=== PATIENT | female | born 1990 | race Caucasian/White ===

== ENCOUNTER 2019-02-13 14:23 | Emergency (ER) | payer BC ==
--- NOTE | 2019-02-13 14:17 | ER Report ---
History and Physical Time Seen By MD: 14:17 (NGOC BARCENAS MD) HPI/ROS CHIEF COMPLAINT: Flank and abdominal pain. HISTORY OF PRESENT ILLNESS: Patient is a 28-year-old female who presents to the emergency department for evaluation of suspected right-sided kidney stone. Patient was seen and evaluated at [facility] urgent care where she had ultrasound showed right-sided hydronephrosis. Apparently blood work was done at that time which we will look in the computer for results. Patient states symptoms began on Wednesday. The pain is localized to the right flank without radiation. She reports nausea without any vomiting no fevers or chills. Patient does have prior history of left-sided kidney stone. REVIEW OF SYSTEMS: Constitutional: No fever, no chills. Eyes: No discharge. ENT: No sore throat. Cardiovascular: No chest pain, no palpitations. Respiratory: No cough, no shortness of breath. Gastrointestinal: Right-sided flank pain Genitourinary: No hematuria. Musculoskeletal: No back pain. Skin: No rashes. Neurological: No headache. (NGOC BARCENAS MD) Allergies: Coded Allergies: NSAIDS (Non-Steroidal Anti-Inflamma (Verified Allergy, Intermediate, RASH, 02/13/19) amoxicillin (Verified Allergy, Intermediate, RASH, 02/13/19) ampicillin (Verified Allergy, Intermediate, RASH, 02/13/19) latex (Verified Allergy, Unknown, 02/13/19) Sulfa (Sulfonamide Antibiotics) (Verified Adverse Reaction, Intermediate, DIARRHEA, 02/13/19) Home Meds Active Scripts Ondansetron Hcl (ZOFRAN) 4 Mg Tablet, 4 MG PO Q8H for Nausea, #15 TAB 0 Refills Prov:NGOC BARCENAS MD 02/13/19 Oxycodone Hcl/Acetaminophen (PERCOCET 5-325 MG TABLET) 1 Each Tablet, 1 EACH PO Q4H for PAIN, #20 TAB 0 Refills Prov:NGOC BARCENAS MD 02/13/19 Past Medical/Surgical History History of prior kidney stone to the left kidney (NGOC BARCENAS MD) Constitutional Vital Sign - Last 24 Hours 02/13/19 02/13/19 02/13/19 02/13/19 14:25 14:30 14:45 15:15 Temp 98.3 Pulse 110 100 97 102 Resp 16 B/P (MAP) 157/109 154/112 (126) Pulse Ox 94 92 91 91 O2 Delivery Room Air 02/13/19 02/13/19 02/13/19 15:30 15:45 16:00 Pulse 98 98 B/P (MAP) 126/90 (102) 124/85 (98) Pulse Ox 89 92 (LAURORA,TRACIE V DO) Physical Exam General Appearance: The patient is alert, has no immediate need for airway protection and no current signs of toxicity. Eyes: Pupils equal and round no injection. Respiratory: Chest is non tender, lungs are clear to auscultation. Cardiac: regular rate and rhythm Gastrointestinal: Abdomen is soft and non tender, no masses, bowel sounds normal. Musculoskeletal: Neck: Neck is supple and non tender. Extremities have full range of motion and are non tender. Skin: No rashes or lesions. (NGOC BARCENAS MD) Medical Decision Making Data Points Laboratory Hematology Test 02/13/19 15:02 Urine Color Yellow Urine Clarity Cloudy Urine pH 5.0 pH (4.8-9.5) Urine Specific [place] 1.027 Urine Protein 30 mg/dL (NEGATIVE) Urine Glucose (UA) Negative mg/dL (NEGATIVE) Urine Ketones 80 mg/dL (NEGATIVE) Urine Blood Moderate (NEGATIVE) Urine Nitrite Negative (NEGATIVE) Urine Bilirubin Negative (NEGATIVE) Urine Urobilinogen 2.0 mg/dL (0.2-1.9) Urine Leukocyte Esterase Small (NEGATIVE) Urine RBC 143 /HPF (0-2/HPF) Urine WBC 15 /HPF (0-5/HPF) Urine Squamous Epithelial Cells Many /LPF (</=FEW) Urine Calcium Oxalate Crystals Few /HPF (NONE) Urine Bacteria Few /HPF (NONE-FEW) Urine Mucus Few /HPF (NONE-FEW) Urine HCG, Qualitative Negative (NEGATIVE) Chemistry Test 02/13/19 15:02 Urine Color Yellow Urine Clarity Cloudy Urine pH 5.0 pH (4.8-9.5) Urine Specific [place] 1.027 Urine Protein 30 mg/dL (NEGATIVE) Urine Glucose (UA) Negative mg/dL (NEGATIVE) Urine Ketones 80 mg/dL (NEGATIVE) Urine Blood Moderate (NEGATIVE) Urine Nitrite Negative (NEGATIVE) Urine Bilirubin Negative (NEGATIVE) Urine Urobilinogen 2.0 mg/dL (0.2-1.9) Urine Leukocyte Esterase Small (NEGATIVE) Urine RBC 143 /HPF (0-2/HPF) Urine WBC 15 /HPF (0-5/HPF) Urine Squamous Epithelial Cells Many /LPF (</=FEW) Urine Calcium Oxalate Crystals Few /HPF (NONE) Urine Bacteria Few /HPF (NONE-FEW) Urine Mucus Few /HPF (NONE-FEW) Urine HCG, Qualitative Negative (NEGATIVE) Urinalysis Test 02/13/19 15:02 Urine Color Yellow Urine Clarity Cloudy Urine pH 5.0 pH (4.8-9.5) Urine Specific [place] 1.027 Urine Protein 30 mg/dL (NEGATIVE) Urine Glucose (UA) Negative mg/dL (NEGATIVE) Urine Ketones 80 mg/dL (NEGATIVE) Urine Blood Moderate (NEGATIVE) Urine Nitrite Negative (NEGATIVE) Urine Bilirubin Negative (NEGATIVE) Urine Urobilinogen 2.0 mg/dL (0.2-1.9) Urine Leukocyte Esterase Small (NEGATIVE) Urine RBC 143 /HPF (0-2/HPF) Urine WBC 15 /HPF (0-5/HPF) Urine Squamous Epithelial Cells Many /LPF (</=FEW) Urine Calcium Oxalate Crystals Few /HPF (NONE) Urine Bacteria Few /HPF (NONE-FEW) Urine Mucus Few /HPF (NONE-FEW) Urine HCG, Qualitative Negative (NEGATIVE) (TRACIE DELA CRUZ DO) EKG/Imaging Imaging FACILITY: [facility] [place] PATIENT NAME: Varsha Larsen : 1990 MR: [id number] V: [id number] EXAM DATE: ORDERING PHYSICIAN: STEVEN RUIZ TECHNOLOGIST: Location: [facility] - [place], [place] Patient: Varsha Larsen : 1990 Visit/Account:[id number] Date of Sevice: 02/13/2019 ABDOMEN COMPLETE ADDITIONAL PERTINENT HISTORY: Right flank pain with positive Brandon's sign. COMPARISON STUDIES: None FINDINGS: Gallbladder:Negative. Liver: Negative. Common duct: Negative. Pancreas: Negative. Spleen:Negative. Kidneys: Findings concerning for moderate right-sided hydronephrosis. Right kidney measures 12.5 cm in length. The left kidney measures 10.3 cm in length Upper abdominal aorta and IVC: Negative. Ascites: none. IMPRESSION: 1. Moderate right-sided hydronephrosis. CT scan may be of benefit to further evaluate for underlying renal or ureteral calculi as a cause for this hydronephrosis. 2. Remaining portions of the exam are unremarkable. Report Dictated By: Simón Dixon MD at 02/13/2019 1:33 PM Report E-Signed By: Simón Dixon MD at 02/13/2019 1:36 PM WSN:[facility] (NGOC BARCENAS MD) Imaging see report (TRACIE DELA CRUZ DO) ED Course/Re-evaluation ED Course The patient was seen prior to stitches with workup that is highly suggestive of right sided ureterolithiasis. Blood work was unremarkable. A CT scan was ordered we will order urine test prior to scan and give IV Toradol for pain along with Zofran for nausea. 02/13/2019 3:03:05 pm bloodwork from earlier today was reviewed and normal white count normal CBC normal electrolytes with normal GFR. (NGOC BARCENAS MD) ED Course 02/13/2019 4:13:50 pm Signed out pending CT. Reviewed pts CT findings. Pts states the left lung finding is chronic. PT does have hx of kidney stones and ovarian cysts. She has always passed her previous stones. kobi give pt a name or urologist since this stone is larger and may not pass. Also discussed using stool softener due to constipation and use of pain medications. PT is more comfortable and would like to go Decision to Disposition Date: Feb 13, 2019 Decision to Disposition Time: 16:15 (TRACIE DELA CRUZ DO) Depart Departure Latest Vital Signs Vital Signs Date Time Temp Pulse Resp B/P (MAP) Pulse Ox O2 Delivery O2 Flow Rate FiO2 02/13/19 16:00 98 124/85 (98) 92 02/13/19 14:25 98.3 16 Room Air (TRACIE DELA CRUZ DO) Impression: Primary Impression: Kidney stone Additional Impressions: Ovarian cyst Constipation Condition: Improved Disposition: HOME OR SELF-CARE Referrals: NADEGE HARVEY MD 2 Days New Scripts Ondansetron Hcl (ZOFRAN) 4 Mg Tablet 4 MG PO Q8H for Nausea, #15 TAB 0 Refills Prov: NGOC BARCENAS MD 02/13/19 Oxycodone Hcl/Acetaminophen (PERCOCET 5-325 MG TABLET) 1 Each Tablet 1 EACH PO Q4H for PAIN, #20 TAB 0 Refills Prov: NGOC BARCENAS MD 02/13/19 Departure Forms: ER Transition Record, Medications Reconciliation, Off Work/School Form, School or Work Release?: School Number of days to be released: 2 Patient Portal Information Patient Instructions: Kidney Stones (GEN) Additional Instructions: Your cat scan showed a large stone 6 x 3 x 5 cm on the right mid ureter. You may not pass this stone on your own due to the size. I recommend you call urology, Dr. Harvey, to make an appointment for follow up and possible intervention to remove the stone. Your cat scan today also showed small bilateral ovarian cysts, kidney stone in your kidney on left, and constipation. percocet 1-2 every 4-6 hours as needed for pain. This will make your constipation worse. Recommend over the counter stool softener to take once a day. Zofran one every 6 hours as needed for nausea Return as needed Problem Qualifiers Additional Impressions: Ovarian cyst Laterality: bilateral Qualified Codes: N83.201 - Unspecified ovarian cyst, right side; N83.202 - Unspecified ovarian cyst, left side Constipation Constipation type: unspecified constipation type Qualified Codes: K59.00 - Constipation, unspecified NGOC BARCENAS MD Feb 13, 2019 14:17 TRACIE DELA CRUZ DO Feb 13, 2019 16:20
[2019-02-13] MEDS ORDERED: KETOROLAC 15 MG/ML VIAL IVP ONE (14:40)
[2019-02-13] MEDS ORDERED: ONDANSETRON 4 MG/2 ML VIAL IVP ONE (14:40)
[2019-02-13] MEDS ORDERED: diphenhydrAMINE 50 MG/ML VIAL IVP ONE (14:40)
[2019-02-13] MEDS ORDERED: OXYC-865 PO (15:04)
[2019-02-13] MEDS ORDERED: ONDA4TAB97 PO (15:04)
[2019-02-13 16:00] VITALS: BP 124/85
--- NOTE | 2019-02-13 16:04 | RADIOLOGY IMAGING REPORT ---
FACILITY: [facility] [place] PATIENT NAME: Varsha Larsen : 1990 MR: [id number] V: [id number] EXAM DATE: ORDERING PHYSICIAN: NGOC BARCENAS TECHNOLOGIST: Location: [facility] Patient: Varsha Larsen : 1990 Visit/Account:[id number] Date of Sevice: 02/13/2019 CT ABDOMEN PELVIS W/O CON HISTORY: right flank pain TECHNIQUE: Axial images acquired through the abdomen/pelvis. Coronal and sagittal reformatting also performed. No IV contrast administered.Dose Lowering Technique One of the following dose optimization techniques was utilized in the performance of this exam: Autom ated exposure control; adjustment of the mA and/or kV according to the patient's size; or use of an i terative reconstruction technique. Specific details can be referenced in the facility's radiology C T exam operational policy. COMPARISON: Abdomen ultrasound performed today FINDINGS: Visualized lung bases: There is patchy air is patchy airspace consolidation in the left lower lobe w hich may represent a developing infiltrate. Dense bands of consolidation in both lower lobes consist ent with scarring versus atelectasis Hepatobiliary: The gallbladder is moderately distended although may be related to a fasting state. There is no evidence of biliary ductal dilatation Spleen: Negative. Adrenals: Negative. Pancreas: Negative. Kidneys ureters and bladder: There is a moderate right hydronephrosis and moderate to severe right hy droureter secondary to a 6 x 3 x 5 mm stone at the junction of the middle and distal third of the rig ht ureter. There is moderate periureteral stranding and mild perinephric stranding on the right. Th ere are at least three nonobstructing calculi seen in the left renal collecting system measuring up t o 3 mm Genitalia: Left ovary appears enlarged and contains a 2.2 cm cyst the right ovary likewise appears p rominent contains a 1.4 cm cyst is a small amount of free pelvic fluid. There also appears to be mil d thickening of the endocervical canal. GI: There is a moderate amount of fecal material seen in the colon which can be seen with constipati on Vessels/spaces/nodes: There shotty mesenteric lymph nodes Bones/soft tissues: No aggressive appearing bone lesions are seen. There are mild infiltrative hitchcock ges seen in the subcutaneous fat along the medial aspect of the upper left thigh Additional findings: None pertinent. IMPRESSION: There is a moderate right hydronephrosis and moderate to severe right hydroureter and periureteral st randing secondary to a 6 x 3 x 5 mm stone at the junction of the middle and distal thirds of the righ t ureter. At least three nonobstructing calculi are identified in the left renal collecting system measuring up to 3 mm There are bilateral ovarian cysts as described above. There also appears to be mild thickening of th e endocervical canal There is a moderate amount of fecal material throughout colon which can be seen with constipation Gallbladder is moderately distended although may be related to a fasting state. There is no evidence of biliary ductal dilatation There is patchy airspace consolidation left lower lobe which may represent a developing infiltrate. Dense bands of consolidation both lower lobes consistent with scarring versus atelectasis Report Dictated By: Shivani Kumar MD at 02/13/2019 3:49 PM Report E-Signed By: Shivani Kumar MD at 02/13/2019 4:00 PM DENNYN:TNOIA
[2019-02-13] MEDS ORDERED: TAMSULOSIN HCL 0.4 MG CAP PO ONE (16:10)
[2019-02-16] MEDS ORDERED: ESCI20TA38 PO (16:17)
[2019-02-16] MEDS ORDERED: CLON0.5T66 PO (16:17)
[2019-02-16] MEDS ORDERED: CYCL10TA29 PO (16:17)
[2019-02-16] MEDS ORDERED: METH25VI31 SUBQ (16:17)
[2019-02-16] MEDS ORDERED: [UNRECOGNIZED DRUG - CODE] PO (16:17)
[2019-02-16] MEDS ORDERED: AMIT75TA42 PO (16:17)
[2019-02-16] MEDS ORDERED: CLIN30SO TP (16:17)
[2019-02-16] MEDS ORDERED: VALA100059 PO (16:17)
[2019-02-16] MEDS ORDERED: COLC0.6C3 PO (16:17)
[2019-02-16] MEDS ORDERED: ESZ3PT PO (16:17)
[2019-02-16] MEDS ORDERED: ASPI-692 PO (16:17)
[2019-02-16] MEDS ORDERED: RANI150C17 PO (16:17)
[2019-02-16] MEDS ORDERED: FERR-59 PO (16:17)
[2019-02-16] MEDS ORDERED: DOXY50CA PO (16:17)
[2019-02-16] MEDS ORDERED: FOLI-68 PO (16:17)
[2019-02-16] MEDS ORDERED: USTE45DI2 SQ (16:17)
[2019-02-16] MEDS ORDERED: MIRT7.5T2 PO (16:17)
[2019-02-16] MEDS ORDERED: GABA-549 PO (16:17)
[2019-02-16] MEDS ORDERED: PRED-420 PO (16:17)
== END 2019-02-13 16:32 | disposition home or self-care (01) ==
LOC: ER 14:39
DX: N13.2 Hydronephrosis with renal and ureteral calculous obstruction (principal); N83.202 Unspecified ovarian cyst, left side; K59.00 Constipation, unspecified
CPT/HCPCS: 74176; 81001; 81025; 96374; 96375; 99284; J1200; J1885; J2405

== ENCOUNTER → 2019-02-13 | Outpatient (CLI) | payer BC ==
[~2019-02-13] MED LIST: ONDA4TAB97 PO; OXYC-865 PO
--- NOTE | 2019-02-13 13:41 | RADIOLOGY IMAGING REPORT ---
FACILITY: [facility] [place] PATIENT NAME: Varsha Larsen : 1990 MR: [id number] V: [id number] EXAM DATE: ORDERING PHYSICIAN: STEVEN RUIZ TECHNOLOGIST: Location: [facility] Patient: Varsha Larsen : 1990 Visit/Account:[id number] Date of Sevice: 02/13/2019 ABDOMEN COMPLETE ADDITIONAL PERTINENT HISTORY: Right flank pain with positive Brandon's sign. COMPARISON STUDIES: None FINDINGS: Gallbladder:Negative. Liver: Negative. Common duct: Negative. Pancreas: Negative. Spleen:Negative. Kidneys: Findings concerning for moderate right-sided hydronephrosis. Right kidney measures 12.5 cm in length. The left kidney measures 10.3 cm in length Upper abdominal aorta and IVC: Negative. Ascites: none. IMPRESSION: 1. Moderate right-sided hydronephrosis. CT scan may be of benefit to further evaluate for underlyin g renal or ureteral calculi as a cause for this hydronephrosis. 2. Remaining portions of the exam are unremarkable. Report Dictated By: Simón Dixon MD at 02/13/2019 1:33 PM Report E-Signed By: Simón Dixon MD at 02/13/2019 1:36 PM WSN:JOHN PAUL
== END ==
LOC: US 12:29
PROVIDERS: ATTEND Physician Assistant
DX: N13.30 Unspecified hydronephrosis (principal); M54.5 Low back pain
CPT/HCPCS: 76700

== ENCOUNTER → 2019-02-13 | Outpatient (REF) | payer BC ==
[2019-02-13 12:32] LABS: PLATELET COUNT, AUTOMATED 596 K/uL (150-450)
== END ==
LOC: ZZSTITCHES 12:21
PROVIDERS: ATTEND Physician Assistant
DX: R10.12 Left upper quadrant pain (principal)
CPT/HCPCS: 82040; 82150; 82247; 82310; 82374; 82435; 82565; 82947; 83690; 84075; 84132; 84155; 84295; 84450; 84460; 84520; 85025

== ENCOUNTER → 2019-02-17 | Outpatient (CLI) | payer BC ==
[~2019-02-17] MED LIST changes: +AMIT75TA42 PO; +ASPI-692 PO; +CLIN30SO TP; +CLON0.5T66 PO; +COLC0.6C3 PO; +CYCL10TA29 PO; +DOXY50CA PO; +ESCI20TA38 PO; +ESZ3PT PO; +FERR-59 PO; +FOLI-68 PO; +GABA-549 PO; +METH25VI31 SUBQ; +MIRT7.5T2 PO; +PRED-420 PO; +RANI150C17 PO; +USTE45DI2 SQ; +VALA100059 PO; +[UNRECOGNIZED DRUG - CODE] PO
--- NOTE | 2019-02-17 13:49 | RADIOLOGY IMAGING REPORT ---
FACILITY: [facility] [place] PATIENT NAME: Varsha Larsen : 1990 MR: [id number] V: [id number] EXAM DATE: [id number] ORDERING PHYSICIAN: NAZIA RANDHAWA TECHNOLOGIST: Location: [facility] Patient: Varsha Larsen : 1990 Visit/Account:[id number] Date of Sevice: 02/17/2019 ADDENDUM #1 ADDENDUM: Note that the history should say they is a history of ASD repair and not apical sclerotic disease. Report Dictated By: Rashi Selby MD at 02/20/2019 9:24 AM Report E-Signed By: Rashi Selby MD at 02/20/2019 9:25 AM ORIGINAL REPORT CHEST PA LAT HISTORY: Preoperative study. Patient with history of kidney stones and apical sclerotic disease. Coar ctation of the aorta. COMPARISON: None FINDINGS: Cardiomediastinal contours: The heart is enlarged. There has been prior sternotomy. Lungs and pleura: There is no finding of an infiltrate, lymphadenopathy or pleural effusion. There is subtle interstitial prominence in the lung bases. This could be related to previous surgery. Compari son with prior films would be helpful. There does not appear to be a discrete acute infiltrate. There is no pleural effusion. Bones/soft tissues: There are no findings of a fracture. IMPRESSION: 1. Status post sternotomy for coarctation repair. 2. Mild cardiomegaly. 3. Subtle interstitial prominence in the lung bases could represent scarring. There are no previous f ilms available for comparison. Report Dictated By: Rashi Selby MD at 02/17/2019 1:43 PM Report E-Signed By: Rashi Selby MD at 02/17/2019 1:45 PM WSN:[email or web address]
== END ==
LOC: RAD 12:50
PROVIDERS: ATTEND Family Medicine
DX: Z01.818 Encounter for other preprocedural examination (principal); Q21.1 Atrial septal defect; Q21.0 Ventricular septal defect
CPT/HCPCS: 71046

== ENCOUNTER 2019-02-20 10:11 | Outpatient (RCR) | payer BC | END 2019-03-17 09:13 | disposition home or self-care (01) | LOC: ONC 10:11 | PROVIDERS: ATTEND Internal Medicine | DX: Z02.9 Encounter for administrative examinations, unspecified (principal) ==

== ENCOUNTER → 2019-02-23 | Day surgery (SDC) | payer BC ==
[2019-02-15 16:19] LABS: PLATELET COUNT, AUTOMATED 526 K/uL (150-450)
--- NOTE | 2019-02-17 13:12 | HISTORY AND PHYSICAL ---
DATE OF ADMISSION: February 20, 2019 CHIEF COMPLAINT Right distal ureteral calculus. HISTORY OF PRESENT ILLNESS The patient is a 28-year-old white female with a congenital cardiac defect who presented to the emergency room on the of this month with increasing right flank pain and nausea. She states the pain has been intermittent for the past 2 to 3 months, but it progressed significantly on the day of presentation. She was evaluated in the emergency room with a CT scan which showed a moderate right hydronephrosis down to a 6 x 5 x 3 mm stone in the proximal part of the distal ureter. She was also noted to have 3 small calculi in the left collecting system. The patient was seen in the Urology clinic on the and was still having moderate discomfort as well as significant microscopic hematuria. Options were discussed including continued observation vs. urologic intervention. It appeared that this stone had been in her ureter for at least 2 months, likely 3 given her symptoms. She elected to undergo urologic intervention if she had not passed the stone in the next 5 days. Therefore, she is now being brought to the operating room for planned anesthetic cystoscopy, right retrograde pyelogram followed by stent placement and/or ureteroscopy with treatment of stone. 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 * Psoriatic arthritis. * Anxiety and depression. * Gastroesophageal reflux disease. 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 * Tonsillectomy. * Cataract surgery. * Pulmonary vein and superior vena cava reconstruction 2011. ALLERGIES Penicillin, ampicillin, sulfa and NSAIDs. CURRENT MEDICATIONS * Amitriptyline. * Multivitamin. * Klonopin. * Lexapro. * Lunesta. * Iron. * Gabapentin. * Methotrexate. * Zofran. * Ranitidine. * Stelara. * Acyclovir. * Mirtazapine. FAMILY HISTORY Noncontributory. REVIEW OF SYSTEMS The patient denies gross hematuria, fever, chills, chest pain, dyspnea on exertion, productive cough, liver disease, chronic headaches. PHYSICAL EXAMINATION GENERAL: Patient is a well-developed white female in no acute distress. HEENT: Normocephalic, atraumatic. CHEST: Clear to auscultation bilaterally. CARDIOVASCULAR: Regular rate and rhythm. ABDOMEN: Soft, nontender. No masses are palpated. GENITOURINARY: Deferred to the OR. EXTREMITIES: Without clubbing, cyanosis, or edema. NEUROLOGIC: Nonfocal. IMPRESSION * This is a 28-year-old white female with obstructing right proximal, distal ureteral stone. * Left kidney stones. PLAN We will perform anesthetic cystoscopy, right ureteroscopy and manipulation of kidney stones with possible stent placement. MTDD
[2019-02-20 09:29] LABS: INR 1.05
--- NOTE | 2019-02-20 10:13 | NUR ---
DR STRICKLAND CALLED [facility] PHONE AM OF SURGERY TO STATES THAT PT WAS TO BE DELAYED BUT LIKELY CANCELLED PENDING CALL WITH HYDROELECTRIC PRODUCTION MANAGER. REQUESTS PT STILL COME INTO [facility] AREA AND DISCUSS THIS WITH HIM AND HAVE LABS DRAWN. PT ARRIVES AND GIVEN THIS INFORMATION. LABS OBTAINED AND PT AWAITING DR STRICKLAND. DENIES ANY FURTHER NEEDS AT THIS TIME. PT EMOTIONAL ABOUT CHANGE. DR STRICKLAND ARRIVES APPROX 20 MINUTES AFTER PT ARRIVES AND DISCUSSES PLAN WITH PT. PT EMOTIONAL AND UPSET ABOUT CHANGE. PT ESCORTED TO [facility] PER DR KAPADIA REQUEST TO MAKE ARRANGEMENTS FOR FOLLOW UP WITH HYDROELECTRIC PRODUCTION MANAGER. ARRANGEMENTS MADE WITH ASSISTANCE FROM THIS RN AND [facility]ER CENTER RN. PT ESCORTED TO EXIT AT THIS TIME. APOLOGIZED TO PT FOR INCONVENIENCE. PT UPSET AND ANGRY AT THIS TIME. STATES NO FURTHER NEEDS
[~2019-02-23] VITALS: Ht 154.9 cm; Wt 54.4 kg
[~2019-02-23] MED LIST changes: +LEVOFLOXACIN/D5W*500 MG/100 ML 100 ML IVPB ONE; +LIDOCAINE/SOD BICARB 8.4% SYR ID ONE; +MIDAZOLAM 2 MG/2 ML VIAL IVP PRN; +NORMOSOL R SOLN(*) 1000 ML BAG 1,000 ML IV PRN
== END ==
LOC: OR 02-20 01:11
PROVIDERS: ATTEND Urology
DX: F41.9 Anxiety disorder, unspecified (principal); F32.9 Major depressive disorder, single episode, unspecified; K21.9 Gastro-esophageal reflux disease without esophagitis; R11.0 Nausea; N20.2 Calculus of kidney with calculus of ureter
CPT/HCPCS: 36415; 81001; 82040; 82247; 82310; 82374; 82435; 82565; 82947; 84075; 84132; 84155; 84295; 84450; 84460; 84520; 84703; 85025; 85610; 85730; 87088